=== PATIENT | female | born 1980 | race African-American/Black ===

== ENCOUNTER 2022-10-26 15:40 | Outpatient (CLI) | payer OTHER | END 2022-10-26 15:41 | disposition home or self-care (01) | LOC: CSHMAMMO 15:40 | PROVIDERS: ATTEND Nurse Practitioner Family | DX: Z12.31 Encounter for screening mammogram for malignant neoplasm of breast (principal) | CPT/HCPCS: 77063; 77067 ==

== ENCOUNTER 2022-10-28 07:58 | Outpatient (CLI) | payer OTHER | END 2022-10-28 07:59 | disposition home or self-care (01) | LOC: CSHULT 07:58 | PROVIDERS: ATTEND Nurse Practitioner Family | DX: N63.11 Unspecified lump in the right breast, upper outer quadrant (principal); R92.8 Other abnormal and inconclusive findings on diagnostic imaging of breast ==